=== PATIENT | male | born 1995 | race Caucasian/White ===

== ENCOUNTER 2019-05-18 12:56 | Emergency (ER) | payer BC ==
--- NOTE | 2019-05-18 13:15 | EDM.PDOC ---
ED HPI GENERAL MEDICAL PROBLEM - General Chief Complaint: Upper Extremity Injury/Pain Stated Complaint: LT THUMB INJURY Time Seen by Provider: 05/18/19 13:14 Source of Information: Reports: Patient History Limitations: Reports: No Limitations - History of Present Illness INITIAL COMMENTS - FREE TEXT/NARRATIVE: 23-year-old male presents the ED for evaluation of acute injury to his left thumb. He was working at home and slipped with a drill. The drill bit agitated the volar aspect of his left thumb and unsure how deep. Bleeding has stopped. Last tetanus toxoid was within the last 6 months. Also has some numbness and tingling along the radial aspect of the distal thumb. However the wound is in the center of the volar aspect of the distal phalanx. Ports no other injuries. Onset: Today Onset Date: 05/18/19 Onset Time: 13:00 Duration: Minutes: Location: Reports: Upper Extremity, Left Quality: Reports: Ache (Left volar distal thumb), Throbbing Severity: Moderate Improves with: Reports: None Worsens with: Reports: Movement Context: Reports: Trauma (Drillbit penetrated the volar aspect of). Denies: Activity, Exercise, Lifting, Sick Contact, Other Associated Symptoms: Reports: No Other Symptoms ( distal phalanx left thumb) Treatments PLATE CUTTER: Reports: Other (see below) (None.) Left Finger-Thumb Pain Score (Numeric/FACES): 5 - Related Data Home Meds: Home Meds Doxycycline [Vibramycin] 100 mg PO BID #20 cap 05/18/19 [Rx] Social & Family History - Living Situation & Occupation Living situation: Reports: Single Occupation: Unemployed Review of Systems - Review of Systems Review Of Systems: See Below Constitutional: Reports: No Symptoms Eyes: Reports: Glasses Ears: Reports: No Symptoms Nose: Reports: No Symptoms Mouth/Throat: Reports: No Symptoms Respiratory: Reports: No Symptoms Cardiovascular: Reports: No Symptoms GI/Abdominal: Reports: No Symptoms Genitourinary: Reports: No Symptoms Musculoskeletal: Reports: Other (Acute injury to the distal aspect of his left thumb) Skin: Reports: Other (Puncture wound volar aspect distal left thumb) Neurological: Reports: Paresthesia Psychiatric: Reports: No Symptoms (Ileal aspect of the distal left thumb) ED EXAM, GENERAL - Physical Exam Exam: See Below Exam Limited By: No Limitations General Appearance: Alert, WD/WN, No Apparent Distress, Other (Blood pressure is mildly elevated 142/78. Otherwise normal vital signs) Extremities: Other (Examination was limited to his left distal thumb. There is a puncture wound to the volar aspect of the left thumb in the mid line. There is significant swelling at the site of puncture. The nailbed is intact. He appears to have some numbness on palpation or light touch to the radial aspect of the distal thumb. There is no approximation of the wound to the neurovascular bundle. There is no active bleeding at present. Tetanus toxoid is up-to-date.) Neurological: Alert, Oriented, CN II-XII Intact, Normal Cognition, Normal Gait, Other Psychiatric: Normal Affect (As these he is radial aspect of the left distal thumb.), Normal Mood Skin Exam: Warm, Dry, Other (Puncture wound volar aspect mid left thumb) Course - Vital Signs Last Recorded V/S: Last Vital Signs Temp 36.4 C 05/18/19 13:12 Pulse 88 05/18/19 13:12 Resp 16 05/18/19 13:12 BP 142/78 H 05/18/19 13:12 Pulse Ox 100 05/18/19 13:12 - Orders/Labs/Meds Orders: Active Orders 24 hr Category Date Time Status Fingers Thumb Lt FA [CR] Stat Exams 05/18/19 13:18 Taken - Radiology Interpretation Free Text/Narrative:: 23-year-old male presents the ED with a puncture wound to the volar aspect of his left thumb from a drill bit. He was working at home when this occurred. In the last half hour. Tetanus toxoid is up-to-date. Plan x-ray of the left thumb will be done to rule out any bony injuries. Otherwise will be left open to heal by secondary intention. Topical antibiotic and wound dressing and coverage with antibiotic to prevent secondary wound infection Departure - Departure Time of Disposition: 13:54 Disposition: Home, Self-Care 01 Condition: Fair Clinical Impression: Puncture wound of thumb, left Qualifiers: Encounter type: initial encounter Qualified Code(s): S61.032A - Puncture wound without foreign body of left thumb without damage to nail, initial encounter - Discharge Information *PRESCRIPTION DRUG MONITORING PROGRAM REVIEWED*: Not Applicable *COPY OF PRESCRIPTION DRUG MONITORING REPORT IN PATIENT ROGER: Not Applicable Prescriptions: Doxycycline [Vibramycin] 100 mg PO BID #20 cap Instructions: Puncture Wound Referrals: PCP,None [Primary Care Provider] - Forms: ED Department Discharge Additional Instructions: Evaluation the emergency room today in regards to a deeper puncture wound to the volar aspect of your left thumb. This occurred accidentally at home today when drill bit slipped and pierced or punctured the volar aspect of your left thumb. An x-ray reveals that the tip of the drill bit did come in contact with the bone and there are very minimal bit of bone fragments within the tissue. With this means it is essentially an open fracture with the tract from the open skin to the bone. The villalba is to prevent secondary infection in the wound. Her tetanus toxoid is up-to-date. He will need to take antibiotic.psyche 100 mg twice daily for the next 10 days to prevent secondary wound infection. Daily cleanse the wound with soap and water. Showering is okay. Plans and water. But the wound should not be soaked under water until it is healed. Which will be about a week to 10 days. Apply topical anabolic such as bacitracin or Polysporin to the wound and a circumferential bandage to keep it clean until healed. Echo care if any signs of infection develop such as increased swelling, pain, obvious pus Sepsis Event Note - Focused Exam Vital Signs: Vital Signs Temp Pulse Resp BP Pulse Ox 05/18/19 13:12 36.4 C 88 16 142/78 H 100 Date Exam was Performed: 05/18/19 Time Exam was Performed: 13:54 - My Orders Last 24 Hours: My Active Orders 05/18/19 13:18 Fingers Thumb Lt FA [CR] Stat - Assessment/Plan Last 24 Hours: My Active Orders 05/18/19 13:18 Fingers Thumb Lt FA [CR] Stat
--- NOTE | 2019-05-20 07:24 | CR ---
Left thumb: Four views of the left thumb were obtained. Bony defect is identified within the corner base of the distal phalanx compatible with the clinical history of drill injury. Small bony fragments are seen within the soft tissues. No displaced larger fragments are seen. Proximal thumb appears unremarkable. Impression: 1. Bony injury as noted above. Diagnostic code #3 This report was dictated in [place] Standard Time
== END 2019-05-18 14:10 | disposition home or self-care (01) ==
LOC: JD.ED 12:56
DX: S61.032A Puncture wound without foreign body of left thumb without damage to nail, initial encounter (principal); W22.8XXA Striking against or struck by other objects, initial encounter; Y92.009 Unspecified place in unspecified non-institutional (private) residence as the place of occurrence of the external cause
CPT/HCPCS: 73140-26-FA; 73140-FA; 99283-25

== ENCOUNTER 2024-05-30 11:40 | Emergency (ER) | payer BC ==
[2024-05-30] MEDS ORDERED: Sodium Chloride 0.9% 10 ML Syringe FLUSH PRN (11:55)
[2024-05-30 12:18] LABS: BASOPHILS PERCENT AUTO 0.4 % (0.0-1.0); EOSINOPHILS ABSOLUTE AUTO 0.1 K/mm3 (0.0-0.4); EOSINOPHILS PERCENT AUTO 0.9 % (0.0-6.0); HEMATOCRIT 44.1 % (42.0-52.0); HEMOGLOBIN 15.1 gm/dl (14.0-18.0); IMMATURE GRAN ABSOLUTE AUTO 0.04 K/mm3 (0.00-0.05); IMMATURE GRAN PERCENT AUTO 0.4 % (0.0-0.4); LYMPHOCYTES ABSOLUTE AUTO 1.7 K/mm3 (1.0-4.8); LYMPHOCYTES PERCENT AUTO 17.6 % (24.0-44.0); MEAN CORPUSCULAR HEMOGLOBIN 28.5 pg (28.0-32.0); MEAN CORPUSCULAR HGB CONC 34.2 g/dl (32.0-36.0); MEAN CORPUSCULAR VOLUME 83.4 fl (83.0-99.0); MEAN PLATELET VOLUME 9.6 fl (9.4-12.4); MONOCYTES ABSOLUTE AUTO 0.5 K/mm3 (0.0-0.8); MONOCYTES PERCENT AUTO 5.2 % (0.0-8.0); NEUTROPHILS ABSOLUTE AUTO 7.4 K/mm3 (1.8-7.7); NEUTROPHILS PERCENT AUTO 75.5 % (41.0-71.0); PLATELET COUNT,PLT 162 K/mm3 (150-400); RED BLOOD CELL COUNT 5.29 M/mm3 (4.52-5.90); WHITE BLOOD CELL COUNT,WBC 9.74 K/mm3 (3.9-11.3)
[2024-05-30 12:36] LABS: A/G RATIO 1.1 (1-2); ALBUMIN 4.1 g/dl (3.4-5.0); BILIRUBIN TOTAL 0.9 mg/dL (0.2-1.0); BUN/CREATININE RATIO 16.4 (14-18); CALCIUM 9.5 mg/dL (8.5-10.1); CREATININE 1.1 mg/dL (0.7-1.3); EST CRCL DRUG DOSING (CG) 97.59 mL/min
[2024-05-30 12:53] LABS: SLIDE REVIEW ABNORMAL SMEAR
[2024-05-30] MEDS: Sodium Chloride 0.9% 1,000 ML IV STA (14:06)
== END 2024-05-30 13:33 | disposition home or self-care (01) ==
LOC: JD.ED 11:40
DX: R42 Dizziness and giddiness (principal); R51.9 Headache, unspecified
CPT/HCPCS: 36415; 70450; 70450-26; 80053; 85025; 87428-QW; 93005; 93010; 99284; 99285